=== PATIENT | male | born 2000 ===

== ENCOUNTER 2023-12-13 18:19 | Emergency (ER) | payer BC, SELFPAY ==
[2023-12-13 18:21] VITALS: BP 135/91
--- NOTE | 2023-12-13 19:05 | ED.GENMED ---
History of Present Illness
General
Chief Complaint: Musculo-Skeletal Complaint
Time Seen by Provider: 12/13/23 18:43
Travel History
Have you had any contact with someone who has COVID-19?: No
Do you have any symptoms of coronavirus? Fever > 100 degrees, chills, cough, shortness of breath, sore throat, loss of taste or smell, muscle aches, or headache?: No
History of Present Illness
History of Present Illness:
HPI: The patient presents due to left clavicular pain that occurred after a fall. He fell down the steps last night. He states that he struck his head/face however has no confusion and no somnolence or any other neurologic concern. The primary
concern is pain at the left clavicle.
EXAM:
GENERAL: Well appearing in no distress
CERVICAL SPINE: No midline c-spine tenderness with excellent AROM
HEAD: There is subtle infraorbital ecchymosis with no bony tenderness
CHEST: No chest wall tenderness, normal heart sounds
LUNGS: Equal lung sounds, no respiratory distress
ABDOMEN: No abdominal tenderness, no peritoneal signs
EXTREMITIES: There is decreased active range of motion at the left shoulder due to pain and tenderness at the left mid clavicle, distal upper extremity function is normal
NEURO: Good strength all extremities, appropriate mental status, normal speech/language
ED COURSE:
6:45 PM: I initially evaluated patient
NUMBER AND COMPLEXITY OF PROBLEMS ADDRESSED AT THE ENCOUNTER
� Chronic conditions affecting care: No significant past medical history
� Acute Exacerbation and/or Progression of Chronic Illness: This is an acute problem
� Differential Diagnosis includes: Shoulder sprain/strain, chest wall contusion, clavicle fracture
AMOUNT AND/OR COMPLEXITY OF DATA TO BE REVIEWED AND ANALYZED
� I performed an independent evaluation of and my interpretation is:
EKG:
CT:
X-rays: I personally viewed x-ray and see displaced mid left clavicle fracture
Laboratory Studies: Not indicated
Other:
� Review of other/old records: No old records available for review in [facility]
� Clinical information was obtained by an independent historian: Not needed
� Prescriptions/Medications Considered but not given:
� Further testing considered but not performed: Considered CT imaging as the patient fell with evidence of head trauma however the patient is young and is on no concerning meds with normal neurologic exam and
RISK OF COMPLICATIONS AND/OR MORBIDITY OR MORTALITY OF PATIENT MANAGEMENT
� Social determinants of health affecting care: Lives at home
� Discussion with other providers:
� Escalation of care including admission/observation vs risk of discharge considered: X-ray of the left clavicle confirms fracture�he was placed in a sling and he will follow-up with orthopedics. I recommended NSAIDs however I
did send a prescription for narcotics if needed.
Phy Exam
Physical Exam
Physical Exam:
See HPI
Course
Orders/Labs/Results
Orders:
Orders
12/13/23 18:22
Clavicle Complete, Left CR [CR Clavicle - Left Complete ] Urgent
Comment:
Reason For Exam: pain
Vital Signs
Initial and Last Documented VS:
Initial Vital Signs
Temp Pulse Resp BP Pulse Ox
98.1 F 116 18 135/91 99
12/13/23 18:21 12/13/23 18:21 12/13/23 18:21 12/13/23 18:21 12/13/23 18:21
Last Documented Vital Signs
Temp Pulse Resp BP Pulse Ox
98.1 F 116 18 135/91 99
12/13/23 18:21 12/13/23 18:21 12/13/23 18:21 12/13/23 18:21 12/13/23 18:21
*Critical Care Note
Total Time (30-74mins, 75-104mins- exclusive of procedures): Not Applicable
ED Attending Note
-
Portions of this chart may have been created with voice recognition software.� Occasional wrong word or��sound alike� substitutions may have occurred due to the inherent limitations of voice recognition software.
Discharge Plan
Departure
Patient Disposition: Home (Routine Discharge)
Date of Disposition: 12/13/23
Time of Disposition: 18:57
Patient with high blood pressure during this ER visit?: Yes
Discharge Problem:
Clavicle fracture, shaft
Instructions: How to Use a Shoulder Sling, Fractures - Clavicle (Adult)
Prescriptions:
New
oxycodone-acetaminophen [Percocet] 5-325 mg tablet
1 - 2 tab PO Q8H PRN (Reason: Pain) Qty: 14 0RF
Referrals:
Ted Whitman MD [Active] - Follow up in 2-3 days
Activity Restrictions/Additional Instructions:
Use sling for comfort. Please follow-up with orthopedics�have given you the contact information for Dr. Whitman. I recommend 3-4 [id number] ibuprofen (Motrin) every 8 hours with food for a few days. Return here if worse. For more severe
pain�I sent in a prescription for narcotic.
Interventions
Interventions:
*Risk Screen - Suicide Last Done: 12/13/23 18:21
*General Assessment Last Done: 12/13/23 18:21
*Neglect/Abuse Screening Last Done: 12/13/23 18:21
*ED COVID-19 Vaccine History Last Done: 12/13/23 18:21
ED-Musculoskeletal Assessment Last Done: 12/13/23 18:39
[2023-12-13 19:26] VITALS: BP 120/72
[2023-12-13 19:27] VITALS: BP 120/72
== END 2023-12-13 19:28 | disposition home or self-care (01) ==
LOC: EMR 18:19
PROVIDERS: EMERGENCY PHYSICIAN Emergency Medicine
DX: S42.022A Displaced fracture of shaft of left clavicle, initial encounter for closed fracture (principal); S00.12XA Contusion of left eyelid and periocular area, initial encounter; W10.9XXA Fall (on) (from) unspecified stairs and steps, initial encounter; R03.0 Elevated blood-pressure reading, without diagnosis of hypertension
CPT/HCPCS: 99283; 73000